=== PATIENT | female | born 1980 | race Caucasian/White ===

== ENCOUNTER → 2023-10-24 | Outpatient (CLI) | payer OTHER, SELFPAY ==
--- NOTE | 2023-10-24 06:48 | CT_ITS ---
STUDY: CT MAXILLOFACIAL SINUSES REASON FOR EXAM: Female, 43 years old. FACIAL PAIN RADIATION DOSAGE (If Supplied By Facility): CTDIvol = ( 33.06 ) mGy, DLP = ( 813.19 ) mGycm TECHNIQUE: The patient was scanned in a multi detector CT scanner. High resolution axial imaging was performed without the administration of intravenous contrast material. Sagittal and coronal images were reconstructed. Individualized dose optimization techniques were used for this CT. COMPARISON: None. FINDINGS: FRONTAL SINUSES: Normal aeration, without mucosal inflammatory disease. ETHMOIDAL SINUSES: Normal aeration, without mucosal inflammatory disease. MAXILLARY SINUSES: Mucosal thickening along the posterior aspect of the left maxillary sinus SPHENOIDAL SINUSES: Normal aeration, without mucosal inflammatory disease. There is patency of the bilateral maxillary infundibuli with normal uncinate processes, ethmoid bullae, and hiatus semilunaris. Normal bilateral middle turbinates. Normal bilateral inferior turbinates. Normal midline nasal septum. There is patency of the bilateral nasal airways. The visualized osseous structures are normal. The visualized bilateral orbital contents are normal. CT/Sinus/Facial Bone IMPRESSION: Mucosal thickening along the posterior aspect of the left maxillary sinus. Electronically Signed: Jose Adorno MD at 14:52 EST ,
== END | disposition home or self-care (01) ==
PROVIDERS: PCP Internal Medicine Infectious Disease; Referring Provider Otolaryngology; Visit Provider Otolaryngology
DX: G50.1 Atypical facial pain (principal)
CPT/HCPCS: 70486